=== PATIENT | male | born 1965 | race Caucasian/White ===

== ENCOUNTER 2020-01-31 04:55 | Inpatient (IN) | payer MEDICAID ==
[~2020-01-31] VITALS: Ht 172.7 cm; Wt 68.2 kg
[~2020-01-31 04:55] MED LIST: CLON-527 PO
[2020-01-31] MEDS ORDERED: valproate sod inj 500 MG in normal saline 100ml IV soln 95 ML IV ONE (05:00)
[2020-01-31] MEDS ORDERED: normal saline 1000ML IV soln IVB ONE (05:00)
[2020-01-31] MEDS ORDERED: LORazepam 2 mg/ml vial ONE (05:40)
--- NOTE | 2020-01-31 05:41 | NUR ---
ativan pulled on override per verbal order of MD Douglas for 2mg IV push. pt is postictal and aggitated and not able to follow safety commands, pulling at lines, spitting and attempting to strike staff. pts chart states allergy to ativan with "confusion" listed as the response. Per MD give Ativan anyway. pt rec'd versed ealier by EMS with no adverse reaction.
[2020-01-31] MEDS ORDERED: LORazepam 2 mg/ml vial IV ONE (05:45)
--- NOTE | 2020-01-31 05:47 | NUR ---
PT STATES ATIVAN ALLERGY "IT DOESNT WORK"
--- NOTE | 2020-01-31 05:48 | NUR ---
PT IS MOVING AROUND TOO MUCH FOR PROPER EKG. EDIN RADHIKA NOTIFIED AND IS OKAY WITH WAITING UNTIL PT ABLE TO BETTER COOPERATE.
[2020-01-31 05:50] LABS: CLARITY,URINE CLOUDY (Clear); COLOR,URINE YELLOW (Yellow); GLUCOSE, URINE NEGATIVE (Neg); KETONES,URINE NEGATIVE (Neg); LEUKOCYTE ESTERASE ,URINE NEGATIVE (Neg); NITRITES, URINE NEGATIVE (Neg); OCCULT BLOOD,URINE SMALL (Neg); PROTEIN,URINE 100 mg/dl (Neg); UROBILINOGEN,URINE 0.2 E.U/dL (0.2-1.0)
[2020-01-31 05:52] LABS: UA COLLECTION TYPE FOLEY CATH
[2020-01-31 06:06] LABS: URINE AMPHETAMINE SCREEN NEGATIVE (Neg); URINE BARBITUATE SCREEN NEGATIVE (Neg); URINE BENZODIAZEPINES SCREEN POSITIVE (Neg); URINE CANNABINOID SCREEN NEGATIVE (Neg); URINE COCAINE SCREEN NEGATIVE (Neg); URINE METHADONE SCREEN NEGATIVE (Neg); URINE OPIATE SCREEN NEGATIVE (Neg); URINE PHENCYCLIDINE SCREEN NEGATIVE (Neg)
[2020-01-31 06:13] LABS: HYALINE CASTS 0-3 /LPF (NEGATIVE); MUCUS STRANDS FEW /LPF (Neg); SQUAMOUS EPITHELIAL CELL,UR FEW /LPF (FEW)
[2020-01-31 06:14] LABS: BACTERIA,URINE FEW /HPF (Neg); RBC,URINE 0-2 /HPF (0-2); WBC,URINE 0-4 /HPF (0-4)
[2020-01-31 06:16] LABS: AMORPHOUS URATES 1+
[2020-01-31] MEDS ORDERED: LIDOcaine 2% 10ml TOPICAL JELLY (Urojet) TP ONE (06:20)
[2020-01-31 06:33] LABS: BASOPHILS # (AUTO) 0.1 X10'3 (0-0.2); BASOPHILS % (AUTO) 0.7 % (0-1); EOSINOPHILS % (AUTO) 0.2 % (0-6); HEMATOCRIT 39.9 % (42.0-52.0); HEMOGLOBIN 13.6 g/dl (14.0-17.9); LYMPHOCYTES # (AUTO) 1.2 X10'3 (1.1-4.8); MEAN CORPUSCULAR HEMOGLOBIN 32.9 PG (27.0-31.0); MEAN CORPUSCULAR HGB CONC 34.1 g/dL (33.0-36.5); MEAN CORPUSCULAR VOLUME 96.5 FL (78-98); MEAN PLATELET VOLUME 6.6 FL (7.4-10.4); MONOCYTES # (AUTO) 0.6 X10'3 (0-0.9); MONOCYTES % (AUTO) 7.1 % (2-12); PLATELET COUNT 291 X10'3 (140-440); RED BLOOD COUNT 4.14 X10'6 (4.70-6.10); RED CELL DISTRIBUTION WIDTH 13.8 % (11.5-14.5); WHITE BLOOD COUNT 8.9 X10'3 (4.5-11.0)
[2020-01-31 06:49] LABS: ALANINE AMINOTRANSFERASE 11 U/L (12-78); ALBUMIN/GLOBULIN RATIO 0.9 (1.1-1.5); ALKALINE PHOSPHATASE 66 IU/L (46-116); ANION GAP 5 (8-16); ASPARTATE AMINO TRANSFERASE 22 U/L (10-37); BILIRUBIN,TOTAL 0.2 MG/DL (0.1-1.0); BLOOD UREA NITROGEN 13 MG/DL (7-18); CALCIUM 7.7 MG/DL (8.5-10.1); CHLORIDE 98 MMOL/L (99-107); CREATININE 0.65 MG/DL (0.60-1.10); ETHANOL < 0.010 GM/DL (0.0-0.010); GLUCOSE 103 MG/DL (70-104); POTASSIUM 4.3 MMOL/L (3.5-5.1); SODIUM 128 MMOL/L (135-145); TOTAL CARBON DIOXIDE 24.8 MMOL/L (24-32); TOTAL PROTEIN 6.2 G/DL (6.4-8.2); eGFR > 90 ML/MIN
[2020-01-31 07:03] LABS: VALPROATE 32 UG/ML (50-100)
[2020-01-31] MEDS ORDERED: haloperidol lactate 5mg/ml inj IM ONE (07:20)
--- NOTE | 2020-01-31 07:57 | NUR ---
TO CT WITH BALAJI PLASENCIA
--- NOTE | 2020-01-31 08:08 | NUR ---
PT IN CT TORE OFF HIS COLOSTOMY BAG AND THREW IT ON THE FLOOR.
[2020-01-31 08:13] LABS: CREATINE KINASE 465 U/L (39-308)
[2020-01-31] MEDS ORDERED: potassium Cl 20 mEq SR tablet PO PRN ×2 (09:30)
[2020-01-31] MEDS ORDERED: ondansetron/PF 4mg/2ml inj IV PRN (09:30)
[2020-01-31] MEDS ORDERED: magnesium 2GM in 50ml NS 50 ML IV PRN (09:30)
[2020-01-31] MEDS ORDERED: magnesium Cl slow-release 64mg tablet PO PRN (09:30)
[2020-01-31] MEDS ORDERED: potassium CL 10mEq/100ml bag 100 ML IV PRN ×2 (09:30)
[2020-01-31] MEDS ORDERED: acetaminophen 325mg tablet PO PRN ×2 (09:30→23:20)
[2020-01-31] MEDS ORDERED: magnesium 4gm in 100ml NS 100 ML IV PRN (09:30)
[2020-01-31 11:00] VITALS: BP 143/95
--- NOTE | 2020-01-31 14:21 | NUR ---
fresh foods technician notified me that the patient refused to have and EKG preformed on him. Will continue to monitor.
[2020-01-31 15:00] VITALS: BP 158/102
[2020-01-31] MEDS: normal saline 1000ml 1,000 ML IV SCH (15:42)
[2020-01-31 18:00] VITALS: BP 148/92
[2020-01-31] MEDS ORDERED: ACET-75 PO (18:02)
[2020-01-31] MEDS ORDERED: LISI10TA4 PO (18:02)
[2020-01-31] MEDS ORDERED: HALO2TAB PO ×2 (18:02→22:54)
[2020-01-31] MEDS ORDERED: DIVA-76 PO (18:02)
[2020-01-31] MEDS ORDERED: UMEC1DIS IH (18:02)
[2020-01-31] MEDS ORDERED: BUSP30TA3 PO (18:02)
[2020-01-31] MEDS ORDERED: ALBU8.5H8 IH (18:02)
[2020-01-31] MEDS ORDERED: CLON-369 PO (18:02)
[2020-01-31] MEDS ORDERED: PANT40TA4 PO (18:02)
[2020-01-31] MEDS ORDERED: NAPR-996 PO (18:02)
[2020-01-31] MEDS ORDERED: QUET100T33 PO (18:02)
--- NOTE | 2020-01-31 18:30 | NUR ---
Patient in room PCU 3023. I have received report from Latha CARPIO and had the opportunity to ask questions and assume patient care.
[2020-01-31] MEDS: K and/or MAG REPLACEMENT MC SCH (20:00)
[2020-01-31 23:00] VITALS: BP 155/90
[2020-01-31] MEDS ORDERED: albuterol 2.5 MG/3 ML nebule NEB PRN (23:20)
[2020-02-01] MEDS: clonazePAM 0.5mg tablet PO PRN ×2 (00:01→14:41)
[2020-02-01] MEDS: busPIRone 15mg tablet PO SCH ×4 (00:02→20:09)
[2020-02-01 03:00] VITALS: BP 159/91
[2020-02-01 06:00] VITALS: BP 151/97
--- NOTE | 2020-02-01 06:20 | NUR ---
Problems reprioritized. Patient report given, questions answered & plan of care reviewed with Shanta CARPIO.
[2020-02-01 06:33] LABS: BASOPHILS # (AUTO) 0.1 X10'3 (0-0.2); BASOPHILS % (AUTO) 0.7 % (0-1); EOSINOPHILS % (AUTO) 0.3 % (0-6); HEMATOCRIT 42.4 % (42.0-52.0); HEMOGLOBIN 14.6 g/dl (14.0-17.9); LYMPHOCYTES # (AUTO) 1.9 X10'3 (1.1-4.8); LYMPHOCYTES % (AUTO) 21.8 % (21-51); MEAN CORPUSCULAR HEMOGLOBIN 32.9 PG (27.0-31.0); MEAN CORPUSCULAR HGB CONC 34.3 g/dL (33.0-36.5); MEAN CORPUSCULAR VOLUME 95.9 FL (78-98); MONOCYTES # (AUTO) 0.9 X10'3 (0-0.9); MONOCYTES % (AUTO) 10.3 % (2-12); NEUTROPHILS # (AUTO) 5.7 X10'3 (1.8-7.7); NEUTROPHILS % (AUTO) 66.9 % (42-75); PLATELET COUNT 331 X10'3 (140-440); RED BLOOD COUNT 4.42 X10'6 (4.70-6.10); RED CELL DISTRIBUTION WIDTH 13.9 % (11.5-14.5); WHITE BLOOD COUNT 8.5 X10'3 (4.5-11.0)
--- NOTE | 2020-02-01 06:35 | NUR ---
Patient in room PCU 3023. I have received report from Diana and had the opportunity to ask questions and assume patient care.
[2020-02-01 06:39] LABS: ALBUMIN 3.4 G/DL (3.4-5.0); ANION GAP 9 (8-16); BLOOD UREA NITROGEN 10 MG/DL (7-18); BUN/CREATININE RATIO 15.2 (5.4-32.0); CALCIUM 8.9 MG/DL (8.5-10.1); CHLORIDE 97 MMOL/L (99-107); CREATININE 0.66 MG/DL (0.60-1.10); GLUCOSE 84 MG/DL (70-104); MAGNESIUM 1.9 MG/DL (1.5-2.4); POTASSIUM 3.8 MMOL/L (3.5-5.1); SODIUM 130 MMOL/L (135-145); TOTAL CARBON DIOXIDE 24.4 MMOL/L (24-32); eGFR > 90 ML/MIN
[2020-02-01] MEDS: K and/or MAG REPLACEMENT MC SCH ×2 (08:00→20:27)
[2020-02-01] MEDS: divalproex sodium 500mg tablet.DR PO SCH ×2 (08:51→20:09)
[2020-02-01] MEDS: haloperidol 1mg tablet PO SCH ×2 (08:52→20:09)
[2020-02-01] MEDS: pantoprazole 40mg Tablet.DR PO SCH (08:52)
[2020-02-01] MEDS: normal saline 1000ml 1,000 ML IV SCH ×3 (09:02→20:11)
--- NOTE | 2020-02-01 10:09 | NUR ---
Discontinued garcia catheter, patient denies of pain or discomfort, offered to void unable, will continue to monitor.
[2020-02-01 11:00] VITALS: BP 119/82
--- NOTE | 2020-02-01 13:00 | NUR ---
Patient change entire bed sheets due to large void
[2020-02-01 15:00] VITALS: BP 173/86
--- NOTE | 2020-02-01 15:33 | NUR ---
PAGER ID: [phone] MESSAGE: [phone] Dank Pierce: Can we renew restraint order, patient is still not safe, he attempts to pull out IV constantly. Thanks Bel [phone]
[2020-02-01 18:00] VITALS: BP 150/98
--- NOTE | 2020-02-01 18:14 | NUR ---
Problems reprioritized. Patient report given, questions answered & plan of care reviewed with
--- NOTE | 2020-02-01 18:22 | NUR ---
Patient in room PCU 3023. I have received report from Meche CARPIO and had the opportunity to ask questions and assume patient care.
[2020-02-01] MEDS: quetiapine 100mg tablet PO SCH (20:09)
[2020-02-01 22:00] VITALS: BP 106/64
[2020-02-02 02:00] VITALS: BP 100/59
[2020-02-02] MEDS: clonazePAM 0.5mg tablet PO PRN ×2 (05:12→16:44)
--- NOTE | 2020-02-02 06:17 | NUR ---
Patient in room PCU 3023. I have received report from BALAJI Donis and had the opportunity to ask questions and assume patient care.
--- NOTE | 2020-02-02 06:21 | NUR ---
Problems reprioritized. Patient report given, questions answered & plan of care reviewed with Laura CARPIO.
[2020-02-02 06:31] LABS: BASOPHILS # (AUTO) 0.1 X10'3 (0-0.2); BASOPHILS % (AUTO) 0.8 % (0-1); EOSINOPHILS % (AUTO) 0.3 % (0-6); HEMATOCRIT 41.4 % (42.0-52.0); HEMOGLOBIN 14.1 g/dl (14.0-17.9); LYMPHOCYTES # (AUTO) 1.8 X10'3 (1.1-4.8); LYMPHOCYTES % (AUTO) 19.6 % (21-51); MEAN CORPUSCULAR HEMOGLOBIN 33.3 PG (27.0-31.0); MEAN CORPUSCULAR VOLUME 97.9 FL (78-98); MEAN PLATELET VOLUME 7.1 FL (7.4-10.4); MONOCYTES # (AUTO) 1.1 X10'3 (0-0.9); MONOCYTES % (AUTO) 11.8 % (2-12); NEUTROPHILS # (AUTO) 6.4 X10'3 (1.8-7.7); NEUTROPHILS % (AUTO) 67.5 % (42-75); PLATELET COUNT 302 X10'3 (140-440); RED BLOOD COUNT 4.23 X10'6 (4.70-6.10); WHITE BLOOD COUNT 9.4 X10'3 (4.5-11.0)
[2020-02-02 06:49] LABS: ANION GAP 9 (8-16); BLOOD UREA NITROGEN 12 MG/DL (7-18); BUN/CREATININE RATIO 14.6 (5.4-32.0); CALCIUM 8.8 MG/DL (8.5-10.1); CHLORIDE 97 MMOL/L (99-107); CREATININE 0.82 MG/DL (0.60-1.10); GLUCOSE 79 MG/DL (70-104); MAGNESIUM 1.9 MG/DL (1.5-2.4); POTASSIUM 3.9 MMOL/L (3.5-5.1); SODIUM 130 MMOL/L (135-145); TOTAL CARBON DIOXIDE 23.8 MMOL/L (24-32); eGFR > 90 ML/MIN
[2020-02-02 07:00] VITALS: BP 107/74
[2020-02-02] MEDS: K and/or MAG REPLACEMENT MC SCH ×2 (07:51→20:03)
[2020-02-02] MEDS: pantoprazole 40mg Tablet.DR PO SCH (07:56)
[2020-02-02] MEDS: haloperidol 1mg tablet PO SCH ×2 (07:56→20:10)
[2020-02-02] MEDS: divalproex sodium 500mg tablet.DR PO SCH ×2 (07:56→20:10)
[2020-02-02] MEDS: busPIRone 15mg tablet PO SCH ×3 (07:56→20:10)
[2020-02-02 09:37] LABS: VALPROATE 36 UG/ML (50-100)
[2020-02-02 11:00] VITALS: BP 121/81
[2020-02-02 15:00] VITALS: BP 111/77
--- NOTE | 2020-02-02 16:38 | NUR ---
New orders from [facility] for klonipin 0.5mg IV PRN q. 6 hours PAGER ID: [phone] MESSAGE: [phone]: Dank KINNEY: pt is being agitated and found trying to get out of bed with restraints, Will give PRN klonopin -Laura [phone]
--- NOTE | 2020-02-02 17:58 | NUR ---
New order for ativan IV 1mg PRN q6 hrs, a sitter and restraint renewal. PAGER ID: [phone] MESSAGE: [phone]: Dank Pierce: May I also have an order for a sitter? Kindly advise! -Laura [phone]
[2020-02-02 18:00] VITALS: BP 138/89
--- NOTE | 2020-02-02 18:20 | NUR ---
Patient in room PCU 3023. I have received report from Laura CARPIO and had the opportunity to ask questions and assume patient care.
--- NOTE | 2020-02-02 18:26 | NUR ---
Problems reprioritized. Patient report given, questions answered & plan of care reviewed with BALAJI Donis.
[2020-02-02] MEDS: LORazepam 2 mg/ml vial IV PRN (18:59)
--- NOTE | 2020-02-02 19:26 | NUR ---
Pt saturations 88% on RA. Pt in 4 point restraints. Discussed with BALAJI Donis and will check saturations in an hour or so before deciding to place pt on O2.
[2020-02-02] MEDS: normal saline 1000ml 1,000 ML IV SCH ×2 (20:01→20:37)
[2020-02-02] MEDS: quetiapine 100mg tablet PO SCH (20:10)
[2020-02-02 22:00] VITALS: BP 119/80
[2020-02-03 02:00] VITALS: BP 125/92
[2020-02-03] MEDS: normal saline 1000ml 1,000 ML IV SCH ×3 (02:10→17:40)
[2020-02-03] MEDS: HYDROcodone/acetaminophen 5mg/325mg tablet PO PRN ×2 (02:48→14:03)
--- NOTE | 2020-02-03 06:31 | NUR ---
Problems reprioritized. Patient report given, questions answered & plan of care reviewed with Stephany CARPIO.
--- NOTE | 2020-02-03 06:37 | NUR ---
Patient in room PCU 3026Y. I have received report from Gagandeep CARPIO and had the opportunity to ask questions and assume patient care.
--- NOTE | 2020-02-03 06:38 | NUR ---
Problems reprioritized. Patient report given, questions answered & plan of care reviewed with Stephany CARPIO.
[2020-02-03 06:44] LABS: BASOPHILS # (AUTO) 0.1 X10'3 (0-0.2); BASOPHILS % (AUTO) 0.8 % (0-1); EOSINOPHILS % (AUTO) 0.7 % (0-6); HEMATOCRIT 40.1 % (42.0-52.0); HEMOGLOBIN 13.7 g/dl (14.0-17.9); LYMPHOCYTES # (AUTO) 1.7 X10'3 (1.1-4.8); LYMPHOCYTES % (AUTO) 24.5 % (21-51); MEAN CORPUSCULAR HGB CONC 34.1 g/dL (33.0-36.5); MEAN CORPUSCULAR VOLUME 96.8 FL (78-98); MONOCYTES # (AUTO) 0.7 X10'3 (0-0.9); NEUTROPHILS # (AUTO) 4.5 X10'3 (1.8-7.7); PLATELET COUNT 274 X10'3 (140-440); RED BLOOD COUNT 4.14 X10'6 (4.70-6.10); RED CELL DISTRIBUTION WIDTH 14.3 % (11.5-14.5); WHITE BLOOD COUNT 7.1 X10'3 (4.5-11.0)
[2020-02-03 07:15] LABS: ALBUMIN 2.7 G/DL (3.4-5.0); ANION GAP 6 (8-16); BLOOD UREA NITROGEN 11 MG/DL (7-18); BUN/CREATININE RATIO 15.9 (5.4-32.0); CALCIUM 8.4 MG/DL (8.5-10.1); CHLORIDE 98 MMOL/L (99-107); CREATININE 0.69 MG/DL (0.60-1.10); GLUCOSE 85 MG/DL (70-104); MAGNESIUM 1.8 MG/DL (1.5-2.4); POTASSIUM 3.3 MMOL/L (3.5-5.1); SODIUM 132 MMOL/L (135-145); TOTAL CARBON DIOXIDE 27.6 MMOL/L (24-32); eGFR > 90 ML/MIN
[2020-02-03] MEDS: pantoprazole 40mg Tablet.DR PO SCH (08:13)
[2020-02-03] MEDS: divalproex sodium 500mg tablet.DR PO SCH ×2 (08:13→20:11)
[2020-02-03] MEDS: haloperidol 1mg tablet PO SCH ×2 (08:14→20:11)
[2020-02-03] MEDS: busPIRone 15mg tablet PO SCH ×3 (08:14→20:11)
[2020-02-03] MEDS: K and/or MAG REPLACEMENT MC SCH ×2 (08:45→20:05)
[2020-02-03 11:00] VITALS: BP 143/95
--- NOTE | 2020-02-03 11:53 | NUR ---
patient has been calm and cooperative with staff. Restraints removed at 11:50 am and will monitor closely, sitter still at bedside
[2020-02-03] MEDS ORDERED: potassium CL 10mEq/100ml bag 100 ML IV PRN (12:00)
[2020-02-03] MEDS ORDERED: potassium Cl 20 mEq SR tablet PO PRN (12:00)
[2020-02-03] MEDS ORDERED: magnesium Cl slow-release 64mg tablet PO PRN (12:00)
[2020-02-03] MEDS ORDERED: magnesium 4gm in 100ml NS 100 ML IV PRN (12:00)
[2020-02-03] MEDS: potassium Cl 20 mEq SR tablet PO PRN ×3 (12:33→20:11)
--- NOTE | 2020-02-03 14:51 | NUR ---
Told from Case Management that Dr Ang has cancelled patient's discharge, and for patient to continue with PT twice a day while at hospital.
[2020-02-03 15:00] VITALS: BP 108/81
--- NOTE | 2020-02-03 16:19 | NUR ---
Received orders from Dr Ang for sitter order tonight. Paged PAGER ID: [phone] MESSAGE: Stephany torres [phone]. RE Isrrael Pierce [id number]. Sitter order expires tonight at 1753. [address] I [address] renewed order for sitter tonight, thank you
[2020-02-03 18:00] VITALS: BP 148/93
--- NOTE | 2020-02-03 18:10 | NUR ---
Problems reprioritized. Patient report given, questions answered & plan of care reviewed with Gagandeep CARPIO.
--- NOTE | 2020-02-03 18:20 | NUR ---
Patient in room PCU 3023. I have received report from Stephany CARPIO and had the opportunity to ask questions and assume patient care.
[2020-02-03] MEDS: LORazepam 2 mg/ml vial IV PRN (19:48)
[2020-02-03] MEDS: quetiapine 100mg tablet PO SCH (20:11)
[2020-02-03 22:00] VITALS: BP 109/72
[2020-02-03 23:00] VITALS: BP 109/72
[2020-02-04] MEDS: clonazePAM 0.5mg tablet PO PRN ×2 (01:34→16:43)
[2020-02-04 02:00] VITALS: BP 103/83
[2020-02-04] MEDS: HYDROcodone/acetaminophen 5mg/325mg tablet PO PRN ×2 (02:25→15:15)
[2020-02-04] MEDS: normal saline 1000ml 1,000 ML IV SCH (03:07)
[2020-02-04 05:50] LABS: BASOPHILS # (AUTO) 0.1 X10'3 (0-0.2); EOSINOPHILS # (AUTO) 0.1 X10'3 (0-0.9); EOSINOPHILS % (AUTO) 1.4 % (0-6); LYMPHOCYTES # (AUTO) 2.3 X10'3 (1.1-4.8); MEAN PLATELET VOLUME 6.9 FL (7.4-10.4); RED CELL DISTRIBUTION WIDTH 14.3 % (11.5-14.5); WHITE BLOOD COUNT 6.2 X10'3 (4.5-11.0)
[2020-02-04 05:51] LABS: HEMATOCRIT 38.8 % (42.0-52.0); HEMOGLOBIN 13.1 g/dl (14.0-17.9); LYMPHOCYTES % (AUTO) 36.8 % (21-51); MEAN CORPUSCULAR HEMOGLOBIN 32.8 PG (27.0-31.0); MEAN CORPUSCULAR HGB CONC 33.7 g/dL (33.0-36.5); MEAN CORPUSCULAR VOLUME 97.4 FL (78-98); MONOCYTES # (AUTO) 0.5 X10'3 (0-0.9); MONOCYTES % (AUTO) 8.8 % (2-12); NEUTROPHILS # (AUTO) 3.2 X10'3 (1.8-7.7); PLATELET COUNT 279 X10'3 (140-440); RED BLOOD COUNT 3.99 X10'6 (4.70-6.10)
[2020-02-04 06:01] LABS: ALBUMIN 2.5 G/DL (3.4-5.0); ANION GAP 7 (8-16); BLOOD UREA NITROGEN 12 MG/DL (7-18); BUN/CREATININE RATIO 17.1 (5.4-32.0); CALCIUM 8.3 MG/DL (8.5-10.1); CHLORIDE 98 MMOL/L (99-107); GLUCOSE 90 MG/DL (70-104); MAGNESIUM 1.7 MG/DL (1.5-2.4); POTASSIUM 4.1 MMOL/L (3.5-5.1); SODIUM 131 MMOL/L (135-145); TOTAL CARBON DIOXIDE 26.5 MMOL/L (24-32); eGFR > 90 ML/MIN
--- NOTE | 2020-02-04 06:12 | NUR ---
Problems reprioritized. Patient report given, questions answered & plan of care reviewed with Araceli CARPIO.
--- NOTE | 2020-02-04 06:52 | NUR ---
Patient in room PCU 3023. I have received report from BALAJI Donis and had the opportunity to ask questions and assume patient care. Patient awake in bed and in no acute distress with sitter at the bedside.
[2020-02-04 07:00] VITALS: BP 107/79
[2020-02-04] MEDS: busPIRone 15mg tablet PO SCH ×3 (07:35→20:33)
[2020-02-04] MEDS: pantoprazole 40mg Tablet.DR PO SCH (07:35)
[2020-02-04] MEDS: haloperidol 1mg tablet PO SCH ×2 (07:36→20:33)
[2020-02-04] MEDS: K and/or MAG REPLACEMENT MC SCH ×2 (07:36→20:00)
[2020-02-04] MEDS: divalproex sodium 500mg tablet.DR PO SCH ×2 (07:36→20:33)
[2020-02-04 09:50] LABS: CLARITY,URINE CLEAR (Clear); COLOR,URINE YELLOW (Yellow); GLUCOSE, URINE NEGATIVE (Neg); KETONES,URINE TRACE mg/dl (Neg); LEUKOCYTE ESTERASE ,URINE NEGATIVE (Neg); NITRITES, URINE POSITIVE (Neg); OCCULT BLOOD,URINE MODERATE (Neg); PROTEIN,URINE NEGATIVE (Neg); UROBILINOGEN,URINE 0.2 E.U/dL (0.2-1.0)
[2020-02-04 10:06] LABS: UA COLLECTION TYPE CONDOM CATH
[2020-02-04 10:08] LABS: BACTERIA,URINE 2+ /HPF (Neg); SQUAMOUS EPITHELIAL CELL,UR FEW /LPF (FEW); WBC,URINE 0-4 /HPF (0-4)
--- NOTE | 2020-02-04 10:19 | NUR ---
Orders to DC normal saline, start incentive spirometer and flutter valve put in per Dr. Lance.
[2020-02-04 15:00] VITALS: BP 115/86
[2020-02-04 18:00] VITALS: BP 129/83
--- NOTE | 2020-02-04 18:14 | NUR ---
Problems reprioritized. Patient report given, questions answered & plan of care reviewed with BALAJI Roland. Patient stable at transfer of care.
--- NOTE | 2020-02-04 18:48 | NUR ---
Patient in room PCU 3023. I have received report from Araceli CARPIO and had the opportunity to ask questions and assume patient care.
[2020-02-04] MEDS: quetiapine 100mg tablet PO SCH (20:33)
[2020-02-04 22:00] VITALS: BP 105/73
[2020-02-04] MEDS: LORazepam 2 mg/ml vial IV PRN (22:22)
[2020-02-05] MEDS: clonazePAM 0.5mg tablet PO PRN (02:37)
[2020-02-05] MEDS: HYDROcodone/acetaminophen 5mg/325mg tablet PO PRN ×4 (02:37→18:54)
[2020-02-05 06:08] LABS: BASOPHILS % (AUTO) 0.6 % (0-1); EOSINOPHILS # (AUTO) 0.1 X10'3 (0-0.9); EOSINOPHILS % (AUTO) 1.3 % (0-6); HEMATOCRIT 39.3 % (42.0-52.0); HEMOGLOBIN 13.4 g/dl (14.0-17.9); LYMPHOCYTES % (AUTO) 31.9 % (21-51); MEAN CORPUSCULAR HEMOGLOBIN 32.9 PG (27.0-31.0); MEAN CORPUSCULAR VOLUME 96.6 FL (78-98); MEAN PLATELET VOLUME 6.9 FL (7.4-10.4); MONOCYTES # (AUTO) 0.5 X10'3 (0-0.9); MONOCYTES % (AUTO) 8.1 % (2-12); NEUTROPHILS # (AUTO) 3.7 X10'3 (1.8-7.7); NEUTROPHILS % (AUTO) 58.1 % (42-75); PLATELET COUNT 295 X10'3 (140-440); RED BLOOD COUNT 4.07 X10'6 (4.70-6.10); RED CELL DISTRIBUTION WIDTH 14.1 % (11.5-14.5); WHITE BLOOD COUNT 6.3 X10'3 (4.5-11.0)
--- NOTE | 2020-02-05 06:14 | NUR ---
Report given to josué Azul.
[2020-02-05 07:26] VITALS: BP 100/79
[2020-02-05] MEDS: haloperidol 1mg tablet PO SCH ×2 (07:32→20:27)
[2020-02-05] MEDS: busPIRone 15mg tablet PO SCH ×3 (07:32→20:27)
[2020-02-05] MEDS: divalproex sodium 500mg tablet.DR PO SCH ×2 (07:32→20:27)
[2020-02-05] MEDS: pantoprazole 40mg Tablet.DR PO SCH (07:32)
[2020-02-05] MEDS: K and/or MAG REPLACEMENT MC SCH ×2 (08:00→20:00)
[2020-02-05 10:00] VITALS: BP 112/74
[2020-02-05 15:47] LABS: ALBUMIN 2.8 G/DL (3.4-5.0); ANION GAP 5 (8-16); BLOOD UREA NITROGEN 12 MG/DL (7-18); BUN/CREATININE RATIO 15.8 (5.4-32.0); CALCIUM 8.7 MG/DL (8.5-10.1); CHLORIDE 95 MMOL/L (99-107); CREATININE 0.76 MG/DL (0.60-1.10); GLUCOSE 80 MG/DL (70-104); MAGNESIUM 1.7 MG/DL (1.5-2.4); POTASSIUM 4.2 MMOL/L (3.5-5.1); SODIUM 129 MMOL/L (135-145); TOTAL CARBON DIOXIDE 28.9 MMOL/L (24-32); eGFR > 90 ML/MIN
[2020-02-05 18:00] VITALS: BP 133/87
--- NOTE | 2020-02-05 18:10 | NUR ---
Patient in room ORTHO 4017. I have received report from BALAJI Azul and had the opportunity to ask questions and assume patient care.
[2020-02-05] MEDS: quetiapine 100mg tablet PO SCH (20:26)
[2020-02-05 22:00] VITALS: BP 134/88
[2020-02-06] MEDS: HYDROcodone/acetaminophen 5mg/325mg tablet PO PRN ×2 (05:21→14:18)
[2020-02-06 06:00] VITALS: BP 123/81
--- NOTE | 2020-02-06 06:20 | NUR ---
Patient in room ORTHO 4020. I have received report from Rachel and had the opportunity to ask questions and assume patient care.
--- NOTE | 2020-02-06 06:30 | NUR ---
Problems reprioritized. Patient report given, questions answered & plan of care reviewed with BALAJI Womack.
[2020-02-06] MEDS: haloperidol 1mg tablet PO SCH ×2 (07:13→20:04)
[2020-02-06] MEDS: busPIRone 15mg tablet PO SCH ×3 (07:13→20:04)
[2020-02-06] MEDS: pantoprazole 40mg Tablet.DR PO SCH (07:13)
[2020-02-06] MEDS: divalproex sodium 500mg tablet.DR PO SCH ×2 (07:13→20:04)
[2020-02-06] MEDS: K and/or MAG REPLACEMENT MC SCH ×2 (08:00→20:00)
[2020-02-06] MEDS: levoFLOXACIN 250mg tablet PO SCH (09:57)
[2020-02-06 10:00] VITALS: BP 116/77
[2020-02-06] MEDS: clonazePAM 1mg tablet PO SCH ×2 (10:47→20:04)
--- NOTE | 2020-02-06 10:55 | NUR ---
Pt refused to work with physical therapy. Pt stated he "is sick and needs to stay in bed". Pt also states he needs to practice stairs at home. Pt has been ambulating independently throughout this shift.
[2020-02-06 18:00] VITALS: BP 126/82
--- NOTE | 2020-02-06 18:04 | NUR ---
Problems reprioritized. Patient report given, questions answered & plan of care reviewed with
--- NOTE | 2020-02-06 18:15 | NUR ---
Patient in room ORTHO 4010. I have received report from BALAJI Womack and had the opportunity to ask questions and assume patient care.
[2020-02-06] MEDS: quetiapine 100mg tablet PO SCH (20:04)
[2020-02-06] MEDS: lactobacillus rhamnosus 10,000 MMU CELLS/CAPSULE PO SCH (20:04)
[2020-02-07] MEDS: HYDROcodone/acetaminophen 5mg/325mg tablet PO PRN ×2 (02:03→11:44)
[2020-02-07 06:00] VITALS: BP 122/83
--- NOTE | 2020-02-07 06:19 | NUR ---
Problems reprioritized. Patient report given, questions answered & plan of care reviewed with BALAJI Mcgill.
--- NOTE | 2020-02-07 06:40 | NUR ---
Patient in room ORTHO 4015. I have received report from Rachel and had the opportunity to ask questions and assume patient care.
[2020-02-07] MEDS: clonazePAM 1mg tablet PO SCH (07:35)
[2020-02-07] MEDS: haloperidol 1mg tablet PO SCH (07:35)
[2020-02-07] MEDS: pantoprazole 40mg Tablet.DR PO SCH (07:35)
[2020-02-07] MEDS: busPIRone 15mg tablet PO SCH ×2 (07:35→13:11)
[2020-02-07] MEDS: lactobacillus rhamnosus 10,000 MMU CELLS/CAPSULE PO SCH (07:35)
[2020-02-07] MEDS: divalproex sodium 500mg tablet.DR PO SCH (07:35)
[2020-02-07] MEDS: levoFLOXACIN 250mg tablet PO SCH ×2 (07:41→11:22)
[2020-02-07] MEDS: K and/or MAG REPLACEMENT MC SCH (08:00)
[2020-02-07 10:00] VITALS: BP 106/65
--- NOTE | 2020-02-07 13:34 | NUR ---
Wound care POC. Arrived at bedside for assessment and education regarding ostomy. Pt states he has had the ostomy for quite a while and does care for it himself. I asked if there was anything in particular he was needing additional education about and he stated he couldn't care for it until he was no longer in pain. I asked him if he wanted me to change the bag so I could assess the salima-stomal skin and make proper recommendations. He refused changing the appliance. I asked what he treated the skin with at home and he said saline. I educated about ostomy powder to create crust. He states he has ostomy powder so I supplied skin prep spray and adhesive remover. Spoke with primary nurse who states the pt has wanted the appliance changed quite often since admit and was surprised he refused to change it with me. Will follow for any ongoing educational needs. Addendum: 02/07/20 at 1334 by Kingsley Iglesias RN Amended: Links added.
--- NOTE | 2020-02-07 13:36 | NUR ---
Initial: Pt admit s/p seizure w/ hx TBI; possibly non-compliant w/ seizure meds, rhabdomyolysis now resolved, and hyponatremia per MD. Pt currently AOx3 confused placed on 2L fluid-restriction per MD for hyponatremia in addition to pureed/thin diet per LOSS CONTROL MANAGER recs. Pureed diet cancelled on accident; ADAN d/w RN regarding addition of pureed diet once more given LOSS CONTROL MANAGER recs. Pt also noted to have hx colostomy though no GI imaging and unsure of prior GI surgeries per MD note. One day slight elevation in output but otherwise WNL this admit. Pt PO 75-100% avg meals increased from initial 50-75% on admit. Meeting needs at this time. Will continue to monitor. Rec: 1. continue pureed/thin/2L fluid restriction diet per LOSS CONTROL MANAGER/MD recs 2. bowel care as needed 3. weekly wts Addendum: 02/07/20 at [address] Amended: Links added.
--- NOTE | 2020-02-07 14:44 | NUR ---
Artem [phone] Re: Dank Pierce Can we have discharge orders put in. thank you.
--- NOTE | 2020-02-07 16:26 | NUR ---
Safe DC. all personal items with patient. Left with [facility] [employer].
[2020-02-07] MEDS ORDERED: LEVO500T2 PO (17:14)
== END 2020-02-07 16:25 | disposition home or self-care (01) | DRG 53 ==
LOC: ER 04:55 → ED HOLD 09:28 → PCU 3S 11:05 → ORTHO 4S 02-04 19:15
PROVIDERS: ADMIT Internal Medicine; ATTEND Internal Medicine
DX: G40.409 Other generalized epilepsy and epileptic syndromes, not intractable, without status epilepticus (principal); E87.1 Hypo-osmolality and hyponatremia; M62.82 Rhabdomyolysis; F17.210 Nicotine dependence, cigarettes, uncomplicated; F41.1 Generalized anxiety disorder; I10 Essential (primary) hypertension; J44.9 Chronic obstructive pulmonary disease, unspecified; R68.0 Hypothermia, not associated with low environmental temperature; F12.90 Cannabis use, unspecified, uncomplicated; F32.9 Major depressive disorder, single episode, unspecified; Z79.899 Other long term (current) drug therapy; Z87.820 Personal history of traumatic brain injury; Z91.19 Patient's noncompliance with other medical treatment and regimen; Z59.0 Homelessness; Z88.5 Allergy status to narcotic agent; Z88.8 Allergy status to other drugs, medicaments and biological substances
CPT/HCPCS: 36415; 70450; 71045; 80048; 80053; 80164; 80305; 80320; 81001; 82550; 82553; 82948; 83735; 83874; 85025; 87077; 87081; 87088; 87186; 92508; 92616; 94760; 96365; 96372; 96375; 97110; 97116; 97161; 97530; 97535; 99291; 99292; G0378; J1630; J2060; J7030

== ENCOUNTER 2020-03-28 13:08 | Outpatient (CLI) | payer MEDICAID ==
[~2020-03-28 13:08] MED LIST changes: +ACET-75 PO; +ALBU8.5H8 IH; +BUSP30TA3 PO; +CLON-369 PO; -CLON-527 PO; +DIVA-76 PO; +HALO2TAB PO; +LISI10TA4 PO; +NAPR-996 PO; +PANT40TA4 PO; +QUET100T33 PO; +UMEC1DIS IH
== END 2020-03-28 23:59 | disposition home or self-care (01) ==
LOC: RAD 13:08
PROVIDERS: ATTEND Student in an Organized Health Care Education/Training Program
DX: G40.909 Epilepsy, unspecified, not intractable, without status epilepticus (principal); Z53.9 Procedure and treatment not carried out, unspecified reason